=== PATIENT | male | born 1995 | race Hispanic/Latino ===

== ENCOUNTER 2021-12-12 11:07 | Inpatient (IN) | payer SELFPAY ==
[2021-12-12 11:50] LABS: #Eosinphils 0.1 thou/uL (0.0-0.7); #Lymphocytes 1.8 thou/uL (1.20-3.40); #Monocytes 1.4 thou/uL (0.11-0.59); %Basophils 0.4 % (0.0-1.0); %Eosinophils 0.8 % (0.0-10.0); %Neutrophils 70.8 % (42.0-75.0); Hemoglobin 17.4 g/dL (14.0-18.0); Mean Corpuscular HGB CONC 34.2 g/dL (32.0-36.0); Mean Corpuscular Hemoglobin 31.8 pg (27.0-31.0); Mean Corpuscular Volume 92.9 fl (78.0-98.0); Mean Platelet Volume 8.1 fL (7.4-10.4); Platelet Count 222 thou/uL (130-400); RBC Distribution Width 13.4 % (11.5-14.5); Red Blood Cell (RBC) Count 5.48 mill/uL (4.70-6.10); White Blood Cell (WBC) Count 11.3 thou/uL (4.8-10.8)
[2021-12-12 12:09] LABS: Magnesium 2.2 mg/dL (1.6-2.6); Phosphorus 2.8 mg/dL (2.3-4.7)
[2021-12-12 12:10] LABS: Hemoglobin A1c 12.6 % (4.0-6.0)
[2021-12-12 12:12] LABS: ALT (SGPT) 33 U/L (8-55); AST (SGOT) 16 U/L (5-34); Albumin 4.5 g/dL (3.5-5.0); Alkaline Phosphatase 107 U/L (40-110); Anion Gap 23 mmol/L (10-20); BUN (Urea Nitrogen) 15 mg/dL (8.9-20.6); Bilirubin, Total 0.5 mg/dL (0.2-1.2); Calc. Creatinine Clearance 0 mL/min (70-130); Chloride 102 mmol/L (98-107); Estimated GFR 52; Globulin 4.2 g/dL (2.4-3.5); Glucose 376 mg/dL (70-105); Potassium 4.2 mmol/L (3.5-5.1); Protein, Total 8.7 g/dL (6.0-8.3); Sodium 130 mmol/L (136-145)
[2021-12-12 12:16] LABS: Carbon Dioxide 9 mmol/L (22-29)
[2021-12-12] MEDS ORDERED: INSULIN REGULAR IN 0.9 % NACL 100 UNIT/100 ML BAG ONE (12:46)
[2021-12-12] MEDS ORDERED: Insulin Regular 300 UNITS/3 ML VIAL ONE (12:46)
[2021-12-12] MEDS ORDERED: Electrolyte Replacement Protocol 1 EACH IVPB SCH (13:20)
[2021-12-12] MEDS ORDERED: Ondansetron ODT 4 MG TAB PO PRN (13:20)
[2021-12-12] MEDS ORDERED: HYDROcodone/Acetaminophen 5/325 mg Tablet PO PRN (13:20)
[2021-12-12] MEDS ORDERED: Sodium Chloride 0.9% 1,000 ML IV PRN ×4 (13:20)
[2021-12-12] MEDS ORDERED: NS 0.9% w/ 20 MEQ KCL 1,000 ML IV PRN ×2 (13:20)
[2021-12-12] MEDS ORDERED: Dextrose 5 %-0.45 % NaCl 1,000 ML IV PRN (13:20)
[2021-12-12] MEDS ORDERED: HUMULIN R 100 UNITS in Sodium Chloride 0.9% 100 ML IVPB SCH (13:30)
[2021-12-12 14:04] LABS: Anion Gap 22 mmol/L (10-20); BUN (Urea Nitrogen) 14 mg/dL (8.9-20.6); Calc. Creatinine Clearance 0 mL/min (70-130); Calcium 8.3 mg/dL (7.8-10.44); Chloride 107 mmol/L (98-107); Estimated GFR 63; Glucose 285 mg/dL (70-105); Potassium 3.5 mmol/L (3.5-5.1); Sodium 133 mmol/L (136-145)
[2021-12-12 14:10] LABS: Carbon Dioxide 8 mmol/L (22-29)
[2021-12-12 15:08] LABS: Bilirubin Negative (Negative); Blood, Urine 2+ (Negative); Clarity Clear (Clear); Glucose, Urine (Dipstick) Greater than 1000 mg/dL (Negative); Ketone, Urine Greater than 150 mg/dL (Negative); Leukocyte Negative Leu/uL (Negative); Nitrite Negative (Negative); Protein, Urine (Dipstick) 100 mg/dL (Neg-Trace); RBC/HPF 0-3 HPF (0-3); Specific Gravity, Urine 1.033 (1.002-1.036); Squamous Epithelial 0-3 HPF (0-3); Urobilinogen Normal mg/dL (Less than 2); WBC/HPF 0-3 HPF (0-3); pH, Urine 5.5 (5.0-9.0)
[2021-12-12 15:11] LABS: Bacteria/HPF 1+ HPF (None Seen)
[2021-12-12] MEDS ORDERED: NS 0.9% w/ 20 MEQ KCL 1,000 ML ONE (15:26)
[2021-12-12 17:29] VITALS: BMI 41.5
[2021-12-12 18:08] LABS: Anion Gap 18 mmol/L (10-20); BUN (Urea Nitrogen) 12 mg/dL (8.9-20.6); Calc. Creatinine Clearance 156 mL/min (70-130); Calcium 7.7 mg/dL (7.8-10.44); Chloride 110 mmol/L (98-107); Estimated GFR 76; Glucose 196 mg/dL (70-105); Potassium 3.3 mmol/L (3.5-5.1); Sodium 134 mmol/L (136-145)
[2021-12-12 18:15] LABS: Carbon Dioxide 9 mmol/L (22-29)
[2021-12-12] MEDS: cefTRIAXone\\ROCEPHIN 1 GM in Sodium Chloride 0.9% 100 ML IVPB SCH (18:58)
[2021-12-12] MEDS: Acetaminophen 325 MG TAB PO PRN (20:24)
[2021-12-12] MEDS: Oseltamivir 75 MG CAP PO SCH (20:26)
[2021-12-12] MEDS: Famotidine 20 MG TAB PO SCH (20:27)
[2021-12-12] MEDS: D5 1/2 NS w/20 mEq KCL 1,000 ML IV PRN (21:18)
[2021-12-12 22:06] LABS: Anion Gap 14 mmol/L (10-20); BUN (Urea Nitrogen) 10 mg/dL (8.9-20.6); Calc. Creatinine Clearance 156 mL/min (70-130); Calcium 7.8 mg/dL (7.8-10.44); Carbon Dioxide 12 mmol/L (22-29); Chloride 108 mmol/L (98-107); Estimated GFR 76; Glucose 227 mg/dL (70-105); Potassium 3.1 mmol/L (3.5-5.1); Sodium 131 mmol/L (136-145)
[2021-12-12] MEDS: Potassium Chloride 20 MEQ in Premix Bag 1 BAG IVPB SCH (23:18)
[2021-12-13] MEDS: D5 1/2 NS w/20 mEq KCL 1,000 ML IV PRN (01:56)
[2021-12-13] MEDS: Potassium Chloride 20 MEQ in Premix Bag 1 BAG IVPB SCH ×3 (01:56→09:54)
[2021-12-13 04:53] LABS: Anion Gap 11 mmol/L (10-20); BUN (Urea Nitrogen) 8 mg/dL (8.9-20.6); Calc. Creatinine Clearance 198 mL/min (70-130); Calcium 7.9 mg/dL (7.8-10.44); Carbon Dioxide 13 mmol/L (22-29); Chloride 112 mmol/L (98-107); Estimated GFR 101; Glucose 214 mg/dL (70-105); Potassium 3.1 mmol/L (3.5-5.1); Sodium 133 mmol/L (136-145)
[2021-12-13] MEDS: Acetaminophen 325 MG TAB PO PRN (07:03)
[2021-12-13] MEDS ORDERED: HumaLOG 300 UNITS/3 ML VIAL SC PRN (08:34)
[2021-12-13] MEDS ORDERED: Dextrose 50% Abboject 50 ML SYRINGE SLOW IVP PRN (08:34)
[2021-12-13] MEDS ORDERED: Dextrose 5% in Water 1,000 ML IV PRN (08:34)
[2021-12-13] MEDS ORDERED: GUAIFENESIN DM SF 5 ML UDCUP PO PRN (09:33)
[2021-12-13] MEDS: Famotidine 20 MG TAB PO SCH ×2 (09:56→21:12)
[2021-12-13] MEDS: Oseltamivir 75 MG CAP PO SCH ×2 (09:56→21:12)
[2021-12-13] MEDS: Enoxaparin Sodium 40 MG/0.4 ML SYRINGE SC SCH (09:57)
[2021-12-13 09:59] LABS: Anion Gap 11 mmol/L (10-20); BUN (Urea Nitrogen) 7 mg/dL (8.9-20.6); Calc. Creatinine Clearance 210 mL/min (70-130); Calcium 8.3 mg/dL (7.8-10.44); Carbon Dioxide 14 mmol/L (22-29); Chloride 110 mmol/L (98-107); Estimated GFR 106; Glucose 170 mg/dL (70-105); Sodium 132 mmol/L (136-145)
[2021-12-13] MEDS: Insulin Glargine 30 UNITS/0.3 ML VIAL SC SCH (09:59)
[2021-12-13] MEDS: Insulin Regular 300 UNITS/3 ML VIAL SC PRN ×3 (16:26→21:59)
[2021-12-13] MEDS: cefTRIAXone\\ROCEPHIN 1 GM in Sodium Chloride 0.9% 100 ML IVPB SCH (18:24)
[2021-12-13] MEDS: Sodium Bicarb 50 MEQ/50 ML VIAL IVP SCH ×2 (18:52→20:42)
[2021-12-13 22:11] LABS: #Eosinphils 0.1 thou/uL (0.0-0.7); #Lymphocytes 2.3 thou/uL (1.20-3.40); #Monocytes 0.8 thou/uL (0.11-0.59); #Neutrophils 3.8 thou/uL (1.40-6.50); %Basophils 0.4 % (0.0-1.0); %Eosinophils 0.7 % (0.0-10.0); %Lymphocytes 33.4 % (21.0-51.0); %Monocytes 10.8 % (0.0-10.0); %Neutrophils 54.6 % (42.0-75.0); Hemoglobin 13.8 g/dL (14.0-18.0); Mean Corpuscular HGB CONC 33.7 g/dL (32.0-36.0); Mean Corpuscular Hemoglobin 30.8 pg (27.0-31.0); Mean Corpuscular Volume 91.4 fl (78.0-98.0); Mean Platelet Volume 7.6 fL (7.4-10.4); Platelet Count 191 thou/uL (130-400); RBC Distribution Width 13.4 % (11.5-14.5); Red Blood Cell (RBC) Count 4.49 mill/uL (4.70-6.10)
[2021-12-13 22:13] LABS: Anion Gap 17 mmol/L (10-20); BUN (Urea Nitrogen) 8 mg/dL (8.9-20.6); Calc. Creatinine Clearance 191 mL/min (70-130); Calcium 8.2 mg/dL (7.8-10.44); Carbon Dioxide 14 mmol/L (22-29); Chloride 105 mmol/L (98-107); Estimated GFR 94; Glucose 307 mg/dL (70-105); Potassium 3.2 mmol/L (3.5-5.1); Sodium 133 mmol/L (136-145)
[2021-12-13] MEDS ORDERED: Sodium Bicarb 50 MEQ/50 ML VIAL IVP SCH (23:30)
[2021-12-13] MEDS ORDERED: Magnesium 2 GM/50 ML(in water) 2 GM in Premix Bag 1 BAG IVPB SCH (23:45)
[2021-12-13] MEDS ORDERED: Potassium Chloride 20 MEQ TAB PO SCH (23:45)
[2021-12-14] MEDS: Insulin Regular 300 UNITS/3 ML VIAL SC PRN ×3 (00:04→12:28)
[2021-12-14] MEDS ORDERED: Benzonatate 100 MG CAP PO PRN (05:39)
[2021-12-14 07:23] LABS: Anion Gap 15 mmol/L (10-20); BUN (Urea Nitrogen) 6 mg/dL (8.9-20.6); Calc. Creatinine Clearance 230 mL/min (70-130); Calcium 7.9 mg/dL (7.8-10.44); Carbon Dioxide 18 mmol/L (22-29); Chloride 106 mmol/L (98-107); Estimated GFR 121; Glucose 231 mg/dL (70-105); Sodium 136 mmol/L (136-145)
[2021-12-14] MEDS ORDERED: Potassium Chloride 20 MEQ TAB PO SCH (08:00)
[2021-12-14] MEDS: Insulin Glargine 30 UNITS/0.3 ML VIAL SC SCH (08:51)
[2021-12-14] MEDS: Oseltamivir 75 MG CAP PO SCH (08:52)
[2021-12-14] MEDS: Famotidine 20 MG TAB PO SCH (08:52)
[2021-12-14] MEDS: Enoxaparin Sodium 40 MG/0.4 ML SYRINGE SC SCH (08:52)
[2021-12-14] MEDS ORDERED: Polyethylene Glycol 3350 17 GM Packet PO PRN (10:36)
[2021-12-14 12:54] VITALS: BP 138/76; TEMP 97.9
== END 2021-12-14 14:00 | disposition home or self-care (01) | DRG 638 ==
LOC: ERS 11:07 → ERHOLD 13:04 → IMCU/EMU 17:21 → T4-B 12-13 17:24
PROVIDERS: ADMIT Internal Medicine; ATTEND Hospitalist
DX: E11.10 Type 2 diabetes mellitus with ketoacidosis without coma (principal); N17.9 Acute kidney failure, unspecified; J11.1 Influenza due to unidentified influenza virus with other respiratory manifestations; Z79.4 Long term (current) use of insulin; Z82.3 Family history of stroke; K59.00 Constipation, unspecified
CPT/HCPCS: 36415; 36416; 71045; 80048; 80053; 81003; 81015; 82010; 83036; 83735; 84100; 84681; 85025; 96374; J0696; J1650; J1815; J3475; J3480; J3490; Q0162